=== PATIENT | female | born 1960 | race Caucasian/White ===

== ENCOUNTER 2017-03-14 11:35 | Day surgery (SDC) | payer OTHER ==
[~2017-03-14] VITALS: Ht 165.1 cm; Wt 73.4 kg
--- NOTE | 2017-03-14 08:22 | PCM.HPANE ---
Patient Data Surgeon Admitting Provider: Attending Provider:Artis Aguilar MD Primary Care Physician:Clementine Cottrell MD Other Provider:Jordan Sotomayor Anesthesia Reason for Visit Right Middle Finger Mucous Cyst Ht/WT & BMI Height (Feet): 5 Height (Inches): 5 Weight (Kilograms): 72.5 Body Mass Index 26.00 Allergies Coded Allergies: Cephalosporins (Verified Allergy, Unknown, dizziness, 03/12/17) Past Anesthesia History Anesthesia History: Denies:: Abnormal Airway, Anesthesia Reactions, Difficult Intubation, Fam Anesthesia Reaction, Fam Malignant Hypertherm, Malignant Hyperthermia Diabetes History Hx Diabetes?: No MRSA MRSA: No Medications Hypertension Medication: No Home Meds Incl Beta Evelyn: No Reported Medications Ganado-3/Dha/Epa/Fish Oil (Fish Oil 1,000 mg Softgel)1 Each Capsule1 Each PO DAILY 11/17/15 Multivitamin (Multi Vitamin Daily)1 Each Tablet1 Each PO DAILY 30 Days Ref 0 11/17/15 [amino acid blend] No Conflict CheckUnknown Dose DAILY 11/17/15 Cholecalciferol (Vitamin D3) (Vitamin D3)1,000 Unit Tab.chew1,000 Unit PO DAILY 11/17/15 Potassium Gluconate (Potassium)99 Mg [id number] Mg PO DAILY 11/17/15 Naproxen (Naprosyn)500 Mg [id number] Mg PO BID PRN For Pain Ref 0 11/17/15 Ibuprofen 800 Mg Tablet1,600 Mg PO DAILY PRN For Pain Ref 0 11/17/15 Discontinued Reported Medications Calcium Carb&Cit/Mag12/Vit D3 (Calcium 500 mg Tablet)1 Each Tablet2 Each PO DAILY 11/17/15 [armour thyroid] No Conflict CheckUnknown Dose DAILY 11/17/15 History History of ENT Problems?: Yes HEENT History: Positive for:: TMJ (wears nightguard) Denies:: Abnormal Airway Cataracts Difficult Intubation Dysphagia Glaucoma Hearing Problem Sinus Problem Denture Type: None Teeth Condition: Within Normal Limits Hx of Heart Problems?: No Cardiovascular History: Denies:: AICD Abdominal Aortic Aneurism Atrial Fibrillation Cardiac Surgery Chest Pain Congestive Heart Failure Coronary Artery Disease Edema Heart Murmur Hypertension Irregular Heartbeat Pacemaker Peripheral Vascular Rheumatic Fever Thrombophlebitis Valvular Heart Disease Hx of Respiratory Problem?: No Respiratory History: Denies:: Asthma COPD Cough Hemoptysis Oxygen Administration Pneumonia Pulmonary Embolism Tuberculosis Use of C-PAP Machine Hx Neurologic Problems?: No Neurological History: Denies:: Alzheimer's Disease CVA Dementia Dizziness Headaches Multiple Sclerosis Parkinson's Disease Seizures TIA Hx of GI Problems?: No Hx of Problems?: No Genitourinary History: Denies:: Kidney Stones Urinary Tract Infection Female Hx: Denies:: Currently Problems with Breasts? Skin History: Denies:: History Skin Disorders? Pressure Ulcers Hx Musculoskeletal Problems?: Yes Musculoskeletal History: Positive for:: Back Injury (occasional numbness in foot) Osteoarthritis Denies:: Degenerative Joint Joint Replacement Musculoskeletal Trauma Myasthenia Gravis Rheumatoid Arthritis Systemic Lupus Hx of Psycho/Social Problems?: No Psycho Social History: Denies:: Anxiety Hx Depression Hx Surgeries?: Yes (appy, ORIF ankle, hardware removal) Hx Any Other Health Problems?: Yes Other History: Positive for:: Hospitalization (2005 ankle surgery) Denies:: Cancer Endocrine Disease Thyroid Disease History Blood Transfusions: Positive for:: Accept Blood Products? Denies:: Blood Transfusions Hx Diabetes: No Hx Alcohol Use: NoHx Substance Use: No Smoking Status: Former Smoker Have You Smoked inLast 12 mo: No Stop/Bang S-Snoring: Do You Snore Loudly: No T-Tired: feel tired, fatigued: No O-Obsered: Observed not breath: No P-Blood Pressure: treated: No B- Body Mass Index > 35 kg/m2: No A- Age over 50: Yes N- Neck Large Circumference: No G- Gender Male: No DIAMOND Total Score: 1 DIAMOND Risk Assessment: Low Risk, <3 Yes Risk Assessment Category Category 1A: Patient has history of documented sleep apnea, and HAS NOT received any narcotic, sedative or anesthesia administration during this stay. Category 1B: Patient has history of documented sleep apnea, and HAS received any narcotic , sedative or anesthesia administration during this stay Category 2: Patient has SUSPECTED Obstructive Sleep Apnea, and HAS received any narcotic , sedative or anesthesia administration during this stay. Category 3: Patient has SUSPECTED Obstructive Sleep Apnea and HAS NOT received narcotic, sedative or anesthesia administration during this stay. Category 4: Outpatient in Procedural Areas with known sleep apnea or who screen positive for High Risk via the STOP/BANG questionnaire. Exam Exam General Appearance: Alert, Oriented X3, Cooperative, No Acute Distress HEENT/AIRWAY: MP 1 Lungs: Normal Air Movement Heart: Exam Unremarkable Plan Impression Patient chart reviewed, patient interviewed and anesthestic plan with risks, benefits, and alternatives discussed, and informed consent obtained. NPO per Anesth. Guidelines: Yes ASA Physical Status: ASA2 Mod Systemic Disease Anesthetic Plan: GA Bene/Risks/Altern/Consents: Yes HP Complete Prior to Induction: Yes Jg Estevez MD Mar 14, 2017 08:22
[~2017-03-14 11:35] MED LIST: CHOL10008 PO; Clindamycin 900 mg/50 mL D5W IV SCH; IBUP800T28 PO; Lactated Ringer's 1,000 ML IV SCH; MULT-1018 PO; NAPR500T PO; OMEG-38 PO; POTA99TA21 PO; [UNRECOGNIZED DRUG - OTHER]
[2017-03-14] MEDS ORDERED: Propofol 10,000 mCg/mL 20 mL Inj ONE (11:36)
[2017-03-14] MEDS ORDERED: fentaNYL-PF 50 mCg/mL 2 mL Inj ONE (11:36)
[2017-03-14 11:56] VITALS: BP 128/83; PULSE 57; RESP 18; O2SAT 99
[2017-03-14] MEDS ORDERED: Clindamycin 900 mg/50 mL D5W Premix IV ONE (12:02)
[2017-03-14] MEDS ORDERED: Lactated Ringer's 1,000 ML IV ONE (12:13)
[2017-03-14] MEDS ORDERED: Lactated Ringer's 1,000 ML IV SCH (12:59)
[2017-03-14] MEDS ORDERED: Lactated Ringer's 500 ML IV PRN (12:59)
[2017-03-14] MEDS ORDERED: fentaNYL-PF 50 mCg/mL 2 mL Inj IVPUSH PRN (13:00)
[2017-03-14] MEDS ORDERED: EPHEDrine Sulfate 50 mg/mL Inj IVPUSH PRN (13:00)
[2017-03-14] MEDS ORDERED: HYDROmorphone 1 mg/mL Inj IVPUSH PRN (13:00)
[2017-03-14] MEDS ORDERED: Ondansetron 2 mg/mL 2 mL Inj IVPUSH PRN (13:00)
[2017-03-14] MEDS ORDERED: Albuterol-Ipratropium 3 mL Inhalation Solution NEB PRN (13:00)
[2017-03-14] MEDS ORDERED: MetoCLOpramide 5 mg/mL 2 mL Inj IVPUSH PRN (13:00)
[2017-03-14] MEDS ORDERED: Dexamethasone 4 mg/mL Inj IVPUSH PRN (13:00)
[2017-03-14] MEDS ORDERED: Phenylephrine 10,000 mCg/mL Inj IVPUSH PRN (13:00)
[2017-03-14] MEDS ORDERED: Bupivacaine-MPF 0.5% 30 mL Inj INFILTRATE ONE (13:10)
[2017-03-14] MEDS ORDERED: Lidocaine PF 1% 30 mL Inj INFILTRATE ONE (13:11)
[2017-03-14] MEDS ORDERED: Bacitracin 50,000 unit Inj IRRIGATION ONE (13:12)
[2017-03-14 13:40] VITALS: BP 118/76; PULSE 65; RESP 18; O2SAT 100
[2017-03-14] MEDS ORDERED: HYDROcodone-APAP 5-325 mg Tablet PO PRN (13:40)
[2017-03-14 14:20] VITALS: BP 120/81; PULSE 50; RESP 17; O2SAT 100
--- NOTE | 2017-03-14 14:33 | PCM.ANEP1 ---
Post Anesthesia PACU Phase 1 Assessment Vital Signs Vital Signs Date Time Temp Pulse Resp B/P Pulse Ox O2 Delivery O2 Flow Rate FiO2 03/14/17 14:20 50 17 120/81 100 Room Air 03/14/17 13:40 36 65 18 118/76 100 Room Air 03/14/17 11:56 36.5 57 18 128/83 99 Room Air Anesthetic Administered: GA Level of Alertness: Awake, talking VALERIO's with Equal Strength: Yes Pain: No Nausea or Vomiting: No CV Function & Hydration Stable: Yes Airway Device: none Oxygen Delivery: Room Air Lungs: Normal Air Movement Dermatome Level: Full Sensation PACU Phase 2 Assessment Complications: No Follow up Care: N/A Patient Instructions Provided: N/A Jg Estevez MD Mar 14, 2017 14:33
--- NOTE | 2017-03-16 15:04 | PATH ---
SURGICAL PATHOLOGY Attending Physician:Artis Aguilar CASE STATUS: Signed Out PATIENT NAME: NOLA CALLAHAN PID: [id number] : 1960 DATE COLLECTED:03/14/2017 00:00 SPECIMEN: Skin, Cyst CLINICAL HISTORY: RIGHT MIDDLE FINGER MUCOUS CYST 1). RIGHT MIDDLE FINGER MUCOUS CYST FINAL DIAGNOSIS: 1.RIGHT MIDDLE FINGER MUCOUS CYST, EXCISION: - FRAGMENTS OF CYST LINING COMPOSED OF FIBROMEMBRANOUS TISSUE AND UNDERLYING SUBCUTANEOUS TISSUE. - NEGATIVE FOR NEOPLASM. ICD10 L72 GROSS DESCRIPTION: The specimen is received in one formalin filled container labeled with the patient's name, sublabeled "right middle finger" and consists of a 0.3 x 0.2 x 0.2 CM portion of tissue which is entirely submitted in one cassette. 03/15/2017DC MICRO DESCRIPTION: See diagnosis. ICD-9 CODES: CPT CODES: 1: 42096 Electronically Signed Out Arya Childers MD [facility] Pathology [facility] [address], [place] [address] Technical component performed at [facility], [facility] [address], [place], [address]
--- NOTE | 2017-03-20 11:28 | OP ---
[address] [address] OPERATIVE REPORT PATIENT: NOLA CALLAHAN : 1960 MR#: [id number] ADMIT: 03/14/2017 JOB ID: [id number] DATE OF SURGERY: 03/14/2017 PREOPERATIVE DIAGNOSIS(ES): Right middle finger mucous cyst. POSTOPERATIVE DIAGNOSIS(ES): Right middle finger mucous cyst. PROCEDURE: 1. Excision of right middle finger mucous cyst. 2. Right middle finger distal interphalangeal joint debridement. SURGEON: Artis Aguilar M.D. VASCULAR TECHNICIAN: None. ANESTHESIA: MAC with local. COMPLICATIONS: None apparent. SPECIMEN: Right middle finger cyst to Pathology. INDICATIONS FOR PROCEDURE: This is a 56-year-old female patient with a slowly enlarging right middle finger mass consistent with a mucous cyst. At this point, excision is indicated to prevent future complications and for tissue diagnosis. PROCEDURES AND FINDINGS: The patient was identified in the preoperative area. Surgical site was marked. The patient was then taken back to the operating room and placed supine on the operating table. Appropriate time-outs were taken. MAC was induced smoothly. The patient was then prepped and draped in the usual sterile manner. Local anesthesia was then infiltrated to the right middle finger in a dorsal ring block as well as around the neurovascular bundle consisting of lidocaine and Marcaine. The middle finger was then exsanguinated and a small tourniquet was placed at the base of the finger. A longitudinal incision was then made directly over the joint. It was that extended obliquely directly over the cyst. I then elevated the skin flap off of the cyst. The cyst was then dissected free circumferentially from its surrounding soft tissue with a pair of iris scissors. Once this has been done, this was dissected off the deep tissue at its base. Then traced back to near the DIP joint ulnarly. It was then transected. At this point, an incision was then made in the joint capsule on the ulnar edge of the extensor apparatus. This allowed me to examine the joint. There is a small amount of myxoid structure in this area that was removed. A small cuff of the ulnar dorsal capsule was removed. A small bone spur was removed with a rongeur. As this has been done, the joint was palpated and was found to be quite smooth. Tourniquet was released and hemostasis was obtained with electrocautery. Incision was then reapproximated using several 5-0 Prolene horizontal mattress sutures. The patient tolerated the procedure well. Needle count, sponge count, instrument counts were correct at the end of the procedure. The patient was transported to recovery in stable condition.
== END 2017-03-14 23:59 | disposition home or self-care (01) ==
LOC: SAS 11:35
PROVIDERS: ATTEND Plastic Surgery
DX: M67.441 Ganglion, right hand (principal); M77.8 Other enthesopathies, not elsewhere classified; K58.9 Irritable bowel syndrome, unspecified; M54.5 Low back pain; M19.90 Unspecified osteoarthritis, unspecified site; Z87.891 Personal history of nicotine dependence